=== PATIENT | female | born 1990 | race African-American/Black ===

== ENCOUNTER 2019-10-14 00:15 | Emergency (ER) | payer MEDICAID ==
[~2019-10-14] VITALS: Ht 167.6 cm; Wt 150.0 kg
[2019-10-14] MEDS ORDERED: IBUPROFEN 600MG TABLET PO ONE (01:15)
[2019-10-14 01:40] LABS: BASOPHILS % 0.6 % (0.0-2.0); EOSINOPHILS % 1.5 % (0.0-5.0); HEMATOCRIT. 33.2 % (36.0-48.0); HEMOGLOBIN. 10.6 g/dL (12.0-16.0); LYMPHOCYTES % 41.6 % (20.0-50.0); MEAN CORPUSCULAR HEMOGLOBIN 24.3 pg (28.0-32.0); MEAN CORPUSCULAR VOLUME 76.3 fL (81.0-99.0); MEAN PLATELET VOLUME 8.6 fl (7.4-10.4); MONOCYTES % 7.6 % (2.0-8.0); NEUTROPHILS % 48.7 % (40.0-76.0); PLATELET 218 x1000/uL (130-400); RED BLOOD CELL COUNT 4.35 mill/uL (4.2-5.4); RED CELL DISTRIBUTION WIDTH 15.5 % (11.6-14.6)
[2019-10-14 01:42] LABS: CHLORIDE 107 mEq/L (98-107)
[2019-10-14 04:28] VITALS: BP 113/63
== END 2019-10-14 04:30 | disposition home or self-care (01) ==
LOC: ER 00:15
DX: M94.0 Chondrocostal junction syndrome [Tietze] (principal); Z98.890 Other specified postprocedural states; Z91.018 Allergy to other foods
CPT/HCPCS: 36415; 71045; 81025; 84484; 85379; 93005; 99284

== ENCOUNTER 2020-09-08 22:16 | Emergency (ER) | payer MEDICAID ==
[~2020-09-08] VITALS: Ht 165.1 cm; Wt 154.0 kg
[2020-09-09] MEDS ORDERED: ONDANSETRON HCL 4MG/2ML INJ IV STA (00:16)
[2020-09-09] MEDS ORDERED: SODIUM CHLORIDE 0.9% 1,000 ML IV ONE (00:30)
[2020-09-09] MEDS ORDERED: KETOROLAC 30MG/ML VIAL IV STA (00:32)
[2020-09-09 01:49] LABS: BASOPHILS % 0.2 % (0.0-2.0); EOSINOPHILS % 0.9 % (0.0-5.0); HEMOGLOBIN. 12.6 g/dL (12.0-16.0); LYMPHOCYTES % 17.4 % (20.0-50.0); MEAN CORPUSCULAR HEMOGLOBIN 24.9 pg (28.0-32.0); MEAN CORPUSCULAR VOLUME 77.2 fL (81.0-99.0); MEAN PLATELET VOLUME 8.8 fl (7.4-10.4); MONOCYTES % 12.2 % (2.0-8.0); NEUTROPHILS % 69.3 % (40.0-76.0); PLATELET 240 x1000/uL (130-400); RED BLOOD CELL COUNT 5.06 mill/uL (4.2-5.4); RED CELL DISTRIBUTION WIDTH 15.2 % (11.6-14.6)
[2020-09-09 01:55] LABS: CHLORIDE 105 mEq/L (98-107)
[2020-09-09 02:03] LABS: CLARITY URINE CLOUDY (CLEAR); COLOR URINE ORANGE (YELLOW); KETONES URINE NEGATIVE (NEGATIVE); LEUKOCYTE ESTERASE URINE 1+ (NEGATIVE); NITRITE URINE NEGATIVE (NEGATIVE); OCCULT BLOOD URINE 3+ (NEGATIVE); PROTEIN URINE 2+ (NEGATIVE); SPECIFIC GRAVITY URINE 1.035 (1.005-1.030); UROBILINOGEN URINE 0.2 E.U./dL (0.2-1.0)
[2020-09-09 02:05] LABS: HCG SCREEN NEGATIVE
[2020-09-09] MEDS ORDERED: IOHEXOL-300 100 ML BOTTLE ONE (02:46)
[2020-09-09 03:30] VITALS: BP 139/81
== END 2020-09-09 04:05 | disposition home or self-care (01) ==
LOC: ER 22:16
DX: R10.9 Unspecified abdominal pain (principal); Z91.018 Allergy to other foods
CPT/HCPCS: 36415; 74177; 80053; 81003; 81025; 83690; 84703; 85025; 96361; 96374; 96375; 99284; J1885; J2405; J7030; Q9967

== ENCOUNTER 2023-03-15 10:17 | Emergency (ER) | payer MEDICAID ==
[~2023-03-15] VITALS: Ht 167.6 cm; Wt 80.0 kg
[2023-03-15 10:25] VITALS: BP 162/84
[2023-03-15 11:53] LABS: BASOPHILS % 0.5 % (0.0-2.0); EOSINOPHILS % 1.6 % (0.0-5.0); HEMATOCRIT. 34.6 % (36.0-48.0); HEMOGLOBIN. 10.8 g/dL (12.0-16.0); LYMPHOCYTES % 42.7 % (20.0-50.0); MEAN CORPUSCULAR HEMOGLOBIN 22.8 pg (28.0-32.0); MEAN CORPUSCULAR VOLUME 73.2 fL (81.0-99.0); MEAN PLATELET VOLUME 8.7 fl (7.4-10.4); MONOCYTES % 6.9 % (2.0-8.0); NEUTROPHILS % 48.3 % (40.0-76.0); PLATELET 271 x1000/uL (130-400); RED BLOOD CELL COUNT 4.73 mill/uL (4.2-5.4); RED CELL DISTRIBUTION WIDTH 17.9 % (11.6-14.6)
[2023-03-15 12:06] LABS: CHLORIDE 107 mEq/L (98-107)
[2023-03-15 12:27] LABS: HCG SCREEN NEGATIVE
[2023-03-15 12:49] LABS: CLARITY URINE CLEAR (CLEAR); COLOR URINE YELLOW (YELLOW); KETONES URINE NEGATIVE (NEGATIVE); LEUKOCYTE ESTERASE URINE NEGATIVE (NEGATIVE); NITRITE URINE NEGATIVE (NEGATIVE); OCCULT BLOOD URINE 3+ (NEGATIVE); PH URINE 7.5 (4.5-8.0); PROTEIN URINE 1+ (NEGATIVE); SPECIFIC GRAVITY URINE 1.017 (1.005-1.030); UROBILINOGEN URINE 0.2 E.U./dL (0.2-1.0)
[2023-03-15] MEDS ORDERED: KETOROLAC 60MG/2ML VIAL IM NR (13:33)
[2023-03-15 13:56] LABS: PLATELET ESTIMATE NORMAL
== END 2023-03-15 13:44 | disposition home or self-care (01) ==
LOC: ER 11:12
DX: N93.9 Abnormal uterine and vaginal bleeding, unspecified (principal); Z32.02 Encounter for pregnancy test, result negative; Z98.890 Other specified postprocedural states
CPT/HCPCS: 36415; 80053; 81003; 81025; 84702; 84703; 85025; 99283